=== PATIENT | male | born 1950 | race Caucasian/White ===

== ENCOUNTER 2017-09-05 02:03 | Inpatient (IN) | payer OTHER ==
[~2017-09-05] VITALS: Ht 170.2 cm; Wt 68.1 kg
[2017-09-05] VITALS (10 sets, daily range): BP systolic 107–140; BP diastolic 48–84
--- NOTE | ~2017-09-05 | EKG ---
[address] [address] ELECTROCARDIOGRAM REPORT Name: CORINA VALADEZ Room #: 359-P ADM IN M.R.#: [id number] Admission: 09/05/17 Attend Phys: Mark Luna MD Discharge: Date of : 50 Report #: [id number] THIS REPORT FOR: //name// [facility] ED Test Date: 2017-09-05 Test Time: 02:19:00 Pat Name: CORINA VLAADEZ Department: Room: Gender: M [employer] Aide Teacher: [place] : 1950 Requested By: Juwan Walker Order Number: [id number] MD: Ney Aquino Measurements Intervals [place] Rate: 85 P: 25 ND: 191 QRS: -77 QRSD: 137 T: 58 QT: 390 QTc: 464 Interpretive Statements Sinus rhythm Leftward axis No previous ECG available for comparison Electronically Signed On 09-05-2017 7:58:47 CDT by Ney Aquino [email or web address] <ELECTRONICALLY SIGNED> By: Ney Aquino MD, [facility] 09/05/17 0758 0219 0219 Ney Aquino MD, FACC /EPI
--- NOTE | ~2017-09-05 | HC ---
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 He was admitted to [facility] with increased shortness of breath, chronic kidney disease stage 4, noted to have pneumonia. He was diagnosed with sepsis, suspected aspiration, and urinary tract infection thought due to indwelling Zaman catheter. He is also noted to have heme-positive anemia. We are seeing him in rehabilitation medicine consultation. PAST MEDICAL HISTORY: Well delineated above. He is noted to have the right-sided hemiplegia, aphasia, history of hematuria, hyperkalemia. ALLERGIES: No known drug allergies. MEDICATIONS: Please see the full medication listing. This is noted to include his vitamins, herbals, and supplements. HABITS: No known history of whether he abused tobacco or alcohol or recreational drugs. SOCIAL HISTORY: Had been living in the community, apparently working as a line welder, but after the big stroke he has been at [employer]. Noted to be . REVIEW OF SYSTEMS: Somewhat difficult with language barrier and his significant aphasia. PHYSICAL EXAMINATION: GENERAL: A 67-year-old male in no obvious distress. VITAL SIGNS: Last recorded temperature 98.1, pulse 91, respirations 24, blood pressure 183/95. NEUROLOGIC: He is alert, limited verbalizations, depressed right nasolabial fold, dense right upper extremity plegia and right lower extremity plegia without obvious volitional movement. Appears to have some increased tone. EXTREMITIES: Edema 1+ in the right upper extremity. He has functional range of motion and appears to have reasonable movement of the left upper and left lower extremity. Transfers have been max assist with bed mobility. He has done some very limited sitting at the edge of the bed. Rolling to the right has been mod [facility] [address] [place] [address] CONSULTATION Name: CORINA VALADEZ Room #: 359-P [facility] IN M.R.#: [id number] Admission: 09/05/17 Attend Phys: Felice Jenkins MD Discharge: Date of : 50 Report #: [id number] assist, rolling to the left max assist. ASSESSMENT: A 67-year-old male with the following problem list: 1. Sepsis, suspected aspiration. 2. Healthcare-associated pneumonia. 3. Premorbid cerebrovascular accident with dense right hemiplegia. 4. Aphasia. 5. Dysphagia. 6. Chronic kidney disease. 7. Hypertension. PLAN: He is at a very low level. We would agree with returning back for skilled level therapies at [facility]. Note that case management is involved with making plans in this regard. By: [id number] Federico Sweet MD /nt
--- NOTE | ~2017-09-05 | HC ---
[facility] [place] [address] CONSULTATION Name: CORINA VALADEZ Room #: 359-P [facility] IN M.R.#: [id number] Admission: 09/05/17 Attend Phys: Felice Jenkins MD Discharge: Date of : 50 Report #: [id number] THIS REPORT FOR: //name// CC: Mark Norman Akkulugari DATE OF SERVICE: 09/05/2017 ATTENDING PHYSICIAN: Mark Luna MD REASON FOR CONSULTATION: Pneumonia. HISTORY OF PRESENT ILLNESS: A 67-year-old man [facility]. The patient unable to provide any information whatsoever. Consequently, all information is gathered from the review of records. PAST MEDICAL HISTORY: 1. CVA 2018, right-sided hemiplegia. 2. Aphasia. 3. Chronic kidney disease, undetermined type. 4. Anemia of chronic disease. 5. Status post percutaneous gastrostomy. 6. Malnutrition. DRUG ALLERGIES: None listed. MEDICATIONS: The patient on treatment with Levaquin 750 mg IV every 48 hours, vancomycin 1 g IV every 24 hours, Zosyn 3.375 grams IV every 12 hours. The patient also on treatment with atorvastatin, enoxaparin, hydralazine per feeding tube, amlodipine, metoprolol, insulin glargine and insulin lispro, p.r.n. glucose, glucagon, guaifenesin, acetaminophen p.r.n., polyethylene glycol per feeding tube, p.r.n. ondansetron, intravenous fluids. SOCIAL HISTORY: Unable to obtain from him FAMILY HISTORY: Unable to obtain. REVIEW OF SYSTEMS: Unable to obtain. PHYSICAL EXAMINATION: GENERAL: Chronically ill-appearing man. VITAL SIGNS: Temperature maximum 99.5, pulse 89, respirations 19, BP 140/66, height 5 feet 7 inches, weight 150 pounds. O2 saturation 97% room air. HEENMT: Pupils reactive. Mouth: Missing teeth, periodontal disease. NECK: Supple. LUNGS: Few basilar crackles. [facility] [address] [place] [address] CONSULTATION Name: CORINA VALADEZ Room #: 359-P [facility] IN M.R.#: [id number] Admission: 09/05/17 Attend Phys: Felice Jenkins MD Discharge: Date of : 50 Report #: [id number] HEART: S1, S2. ABDOMEN: Left-sided percutaneous gastrostomy. Soft, no masses or megaly. GENITALIA: Revealed Zaman catheter in place. RECTAL: Deferred. EXTREMITIES: No clubbing, cyanosis. NEUROLOGIC: Unable to evaluate. LABORATORY DATA: Sodium 133, potassium 4.5, BUN 114, creatinine 3.3, glucose 145, magnesium 2.7, alkaline phosphatase 196. Albumin 1.9. NT-proBNP 5065. Serum iron level 11, TIBC 214, percent saturation 5. WBC 18,900, hemoglobin 7.6 g/dL, platelets 213,000. White blood cell count differential, 94% segmented neutrophils. Urinalysis, cloudy, specific gravity 1.015, pH 6.53, 3+ protein, trace glucose, positive nitrite. Microscopic exam revealed bacteriuria, hematuria and pyuria. MICROBIOLOGY DATA: Blood and urine cultures negative so far. RADIOLOGY EVALUATION: Chest x-ray revealed cardiomegaly and some right basilar pulmonary infiltrate. ASSESSMENT: 1. Question aspiration pneumonia. 2. Urinary tract infection. 3. History of cerebrovascular accident. 4. Leukocytosis secondary to above. 5. Chronic kidney disease. 6. Severe anemia. 7. Status post percutaneous gastrostomy. SUGGESTIONS: Recommend urine for legionella and Streptococcus pneumoniae antigen. CRP and ESR. Continue coverage as for healthcare-associated pneumonia. In view of swollen right upper extremities, ultrasound venous circulation, right upper extremity. Dr. Luna, thank you for requesting my suggestions. <ELECTRONICALLY SIGNED> By: Reji Rizvi MD 09/06/17 0959 [id number] [id number] Reji Rizvi MD /nt
--- NOTE | ~2017-09-05 | HC ---
[facility] [place] [address] CONSULTATION Name: CORINA VALADEZ Room #: 359-P ADM IN M.R.#: [id number] Admission: 09/05/17 Attend Phys: Felice Jenkins MD Discharge: Date of : 50 Report #: [id number] THIS REPORT FOR: //name// CC: Emerson Jenkins DATE OF SERVICE: 09/06/2017 NEPHROLOGY CONSULTATION REASON FOR CONSULTATION: Chronic kidney disease. HISTORY OF PRESENT ILLNESS: The patient with known longstanding diabetes, hypertension and chronic kidney disease listed as CKD 4 at his detention. He apparently had a cough and a fever, was sent to the Emergency Department and found to have a urinary infection and admitted. He also had positive stools and anemia. PAST MEDICAL HISTORY: As far as I can tell, the patient had a fairly recent stroke with right hemiparesis and aphasia, inability to swallow and a PEG tube placed. He has an indwelling Zaman catheter, history of CKD 4 along with his diabetes and history of hypertension, which apparently has also been somewhat difficult. He has had ventricular arrhythmias. He had gross hematuria and apparently has a mass in his bladder yet to be evaluated by Urology. He also had a recent hospitalization complicated by hyperkalemia, as well as out of control blood sugars, currently at [facility] and this was within the last couple of weeks. FAMILY HISTORY: Unavailable. SOCIAL HISTORY: Unavailable. REVIEW OF SYSTEMS: The patient cannot answer questions. He nods a little bit, seems relatively comfortable in bed. HOME MEDICATIONS: Simvastatin 20 mg daily, amlodipine 10 mg daily, hydralazine 50 mg t.i.d., metoprolol tartrate 25 mg b.i.d., doxycycline 100 mg b.i.d. and insulin. PHYSICAL EXAMINATION: GENERAL: Reasonably comfortable appearing gentleman seen in his hospital bed. Indwelling Zaman in place. SKIN: Unremarkable. SKELETAL: Well developed, well nourished, nonobese. HEENT: Extraocular movements appear to be full. Vision difficult to test. Hearing appears to be intact. Mucous membranes are dry. [facility] [address] [place] [address] CONSULTATION Name: CORINA VALADEZ Room #: 359-P [facility] IN M.R.#: [id number] Admission: 09/05/17 Attend Phys: Felice Jenkins MD Discharge: Date of : 50 Report #: [id number] NECK: Supple. CHEST: Shows somewhat diminished breath sounds at the bases in supine position. HEART: Regular. ABDOMEN: Soft. EXTREMITIES: Show no edema. NEUROLOGIC: Shows the aphasia and right hemiparesis. LABORATORY DATA: Creatinine is 3.3, up to 3.6. Urinalysis was floridly infected, also showing proteinuria. He did have leukocytosis with a white count of 18,900, platelets of 202. Hemoglobin was 7.6. He received 2 units of blood. Sodium 136, potassium 4, chloride 102, bicarbonate 22, BUN 107, creatinine 3.6. ASSESSMENT AND PLAN: 1. Chronic kidney disease stage 4 as listed. Baseline creatinine not really available. I do not have any labs. He may have an acute exacerbation. IV fluids and treatment of his urinary infection are indicated. 2. Urinary tract infection, awaiting cultures on antibiotics. ID is seeing. 3. Recent dominant hemisphere cerebrovascular accident with right hemiparesis and aphasia, now with a PEG tube as well. 4. Longstanding diabetes. 5. Hypertension. 6. Bladder mass. By: [id number] Francisco Patton MD /nt
[2017-09-05 02:28] LABS: ABSOLUTE NEUTROPHILS 17.8 thou/uL (1.4-8.2); BASOPHILS 0.4 % (0.0-2.0); HEMATOCRIT 22.4 % (42.0-52.0); HEMOGLOBIN 7.6 gm/dL (14.0-18.0); LYMPHOCYTES 1.8 % (24.0-44.0); MCH 29.6 pg (26.0-34.0); MCHC 33.8 g/dL (28.0-37.0); MCV 87.5 fL (80.0-100.0); MONOCYTES 3.7 % (1.0-8.0); PLATELET COUNT 213 thou/uL (150-400); POLYS 94.1 % (36.0-66.0); RBC 2.56 mil/uL (4.50-6.00); RDW 14.1 % (10.5-14.5); WBC 18.9 thou/uL (4.0-11.0)
[2017-09-05 02:31] LABS: URINE BILIRUBIN NEGATIVE (Negative); URINE BLOOD 2+ (Negative); URINE COLOR YELLOW; URINE GLUCOSE-RANDOM* TRACE (Negative); URINE KETONES NEGATIVE (Negative); URINE PROTEIN (DIPSTICK) 3+ (Negative); URINE SPECIFIC GRAVITY 1.015 (1.005-1.035); URINE UROBILINOGEN 0.2 E.U./dl (0.2-1.0)
[2017-09-05 02:32] LABS: URINE CLARITY SL CLOUDY; URINE LEUKOCYTES-REFLEX 2+ (Negative); URINE NITRITE-REFLEX POSITIVE (Negative)
[2017-09-05 02:32] LABS: ANION GAP 7 mmol/L (7-16); BUN 114 mg/dL (7-18); CALCIUM 8.7 mg/dL (8.5-10.1); CHLORIDE 99 mmol/L (98-107); CO2 27 mmol/L (21-32); CREATININE 3.3 mg/dL (0.7-1.3); GLUCOSE 145 mg/dL (74-106); POTASSIUM 4.5 mmol/L (3.5-5.1); SODIUM 133 mmol/L (136-145)
[2017-09-05 02:40] LABS: SQUAMOUS 4-10 Moderate /LPF (0-3); URINE WBC-REFLEX >25 Many /HPF (0-5)
[2017-09-05 02:41] LABS: BACTERIA-REFLEX >30 Many /HPF (None Seen); CASTS None Seen /LPF (None Seen); CRYSTALS None Seen /LPF (None Seen); MUCUS 0-3 Light strn/LPF (None Seen)
[2017-09-05 02:41] LABS: ALBUMIN 1.9 g/dL (3.4-5.0); MAGNESIUM 2.7 mg/dL (1.8-2.4); SGOT 35 U/L (15-37); SGPT 63 U/L (30-65); TOTAL BILIRUBIN 0.4 mg/dL (<0.1-1.0); TOTAL PROTEIN 6.1 g/dL (6.4-8.2); TROPONIN-I < 0.04 ng/mL (<0.06)
[2017-09-05] MEDS ORDERED: SIMVASTATIN20 MG PER TUBE (02:43)
[2017-09-05] MEDS ORDERED: AMLODIPINE BESY10 MG PER TUBE (02:43)
[2017-09-05] MEDS ORDERED: HYDRALAZINE 2525 MG PER TUBE (02:44)
[2017-09-05] MEDS ORDERED: LOPRESSOR25 PER TUBE (02:44)
[2017-09-05] MEDS ORDERED: FLORASTORKIDS250 MG PER TUBE (02:44)
[2017-09-05] MEDS ORDERED: LANTUS100 UNIT/M SUBQ (02:45)
[2017-09-05] MEDS ORDERED: DOXYCYCLINE 10100 MG PO (02:45)
[2017-09-05] MEDS ORDERED: NOVOLOG100 UNIT/1 SUBQ (02:46)
[2017-09-05 09:41] LABS: ABSOLUTE RETIC COUNT 0.0811 10^6/uL; OBSERVED RETIC COUNT 3.12 % (0.6-2.6)
[2017-09-05 09:43] LABS: % SATURATION 5 % (20-39); IRON 11 ug/dL (65-175); TIBC 214 ug/dL (250-450)
[2017-09-05 10:57] LABS: FOLIC ACID 31.3 ng/mL (8.6-58.9)
[2017-09-06 03:30] VITALS: BP 138/70
[2017-09-06 04:39] LABS: HEMATOCRIT 25.4 % (42.0-52.0); MCH 29.6 pg (26.0-34.0); MCHC 33.9 g/dL (28.0-37.0); MCV 87.2 fL (80.0-100.0); RBC 2.91 mil/uL (4.50-6.00); RDW 14.8 % (10.5-14.5)
[2017-09-06 04:40] LABS: HEMOGLOBIN 8.6 gm/dL (14.0-18.0)
[2017-09-06 04:53] LABS: CALCIUM 8.3 mg/dL (8.5-10.1); CREATININE 3.6 mg/dL (0.7-1.3)
[2017-09-06 07:59] VITALS: BP 136/60
[2017-09-06 11:49] VITALS: BP 136/62
[2017-09-06 19:39] VITALS: BP 129/54
[2017-09-07 03:13] VITALS: BP 135/70
[2017-09-07 06:01] LABS: ABSOLUTE NEUTROPHILS 8.7 thou/uL (1.4-8.2); BASOPHILS 0.6 % (0.0-2.0); EOSINOPHILS 1.5 % (0.0-3.0); HEMATOCRIT 25.1 % (42.0-52.0); HEMOGLOBIN 8.7 gm/dL (14.0-18.0); LYMPHOCYTES 6.4 % (24.0-44.0); MCH 30.4 pg (26.0-34.0); MCHC 34.7 g/dL (28.0-37.0); MCV 87.5 fL (80.0-100.0); MONOCYTES 8.4 % (1.0-8.0); PLATELET COUNT 213 thou/uL (150-400); POLYS 83.1 % (36.0-66.0); RBC 2.87 mil/uL (4.50-6.00); RDW 14.7 % (10.5-14.5); WBC 10.4 thou/uL (4.0-11.0)
[2017-09-07 06:14] LABS: CALCIUM 8.1 mg/dL (8.5-10.1); CREATININE 3.5 mg/dL (0.7-1.3); MAGNESIUM 2.7 mg/dL (1.8-2.4); POTASSIUM 4.4 mmol/L (3.5-5.1)
[2017-09-07 07:06] VITALS: BP 156/78
[2017-09-07 11:32] VITALS: BP 125/71
[2017-09-07 15:12] VITALS: BP 141/74
[2017-09-07 15:21] VITALS: BP 121/77
[2017-09-07 19:40] VITALS: BP 121/69
[2017-09-08 03:55] VITALS: BP 131/72
[2017-09-08 06:13] LABS: HEMATOCRIT 26.5 % (42.0-52.0); MCHC 33.9 g/dL (28.0-37.0); MCV 88.4 fL (80.0-100.0); RBC 2.99 mil/uL (4.50-6.00); RDW 14.8 % (10.5-14.5); WBC 6.7 thou/uL (4.0-11.0)
[2017-09-08 06:22] LABS: CALCIUM 7.9 mg/dL (8.5-10.1); CREATININE 3.4 mg/dL (0.7-1.3)
[2017-09-08 07:15] VITALS: BP 146/77
[2017-09-08 11:07] VITALS: BP 129/70
[2017-09-08 15:21] VITALS: BP 131/68
[2017-09-08 20:25] VITALS: BP 120/65
[2017-09-09 04:26] LABS: ALBUMIN 1.7 g/dL (3.4-5.0); CALCIUM 8.2 mg/dL (8.5-10.1); CREATININE 3.4 mg/dL (0.7-1.3); PHOSPHORUS 4.5 mg/dL (2.5-4.9); POTASSIUM 5.6 mmol/L (3.5-5.1)
[2017-09-09 05:20] VITALS: BP 130/69
[2017-09-09 07:14] VITALS: BP 183/95
[2017-09-09 11:46] VITALS: BP 156/85
[2017-09-09 16:36] VITALS: BP 155/80
[2017-09-09 19:15] VITALS: BP 157/77
[2017-09-10 03:20] VITALS: BP 179/93
[2017-09-10 06:37] LABS: HEMATOCRIT 27.2 % (42.0-52.0); MCH 29.6 pg (26.0-34.0); MCHC 33.2 g/dL (28.0-37.0); MCV 89.1 fL (80.0-100.0); RBC 3.06 mil/uL (4.50-6.00); WBC 7.7 thou/uL (4.0-11.0)
[2017-09-10 07:07] LABS: CALCIUM 8.6 mg/dL (8.5-10.1); CREATININE 3.4 mg/dL (0.7-1.3); POTASSIUM 5.8 mmol/L (3.5-5.1)
[2017-09-10 07:44] VITALS: BP 174/90
[2017-09-10 11:40] VITALS: BP 143/74
[2017-09-10] MEDS ORDERED: PROTONIX40 M1 PO (11:52)
[2017-09-10] MEDS ORDERED: DUONEB 2.5-0.5 M3 ML INH (11:52)
[2017-09-10] MEDS ORDERED: MIRALAX17 GM PO (11:52)
[2017-09-10] MEDS ORDERED: CIPRO250 M1 PO (13:21)
== END 2017-09-10 16:33 | DRG 871 ==
LOC: ER 02:03 → EROBS 02:53 → 3W 02:53
PROVIDERS: Emergency Medicine; Hospitalist; Internal Medicine; Internal Medicine Nephrology; Nurse Practitioner Family
PROC: 30233N1 Transfusion of Nonautologous Red Blood Cells into Peripheral Vein, Percutaneous Approach (ICD-10-PCS; principal; 2017-09-05)
DX: A41.9 Sepsis, unspecified organism (principal); J69.0 Pneumonitis due to inhalation of food and vomit; N18.4 Chronic kidney disease, stage 4 (severe); I69.351 Hemiplegia and hemiparesis following cerebral infarction affecting right dominant side; N10 Acute pyelonephritis; I13.0 Hypertensive heart and chronic kidney disease with heart failure and stage 1 through stage 4 chronic kidney disease, or unspecified chronic kidney disease; N32.9 Bladder disorder, unspecified; D50.9 Iron deficiency anemia, unspecified; E87.5 Hyperkalemia; I50.9 Heart failure, unspecified; D63.8 Anemia in other chronic diseases classified elsewhere; E11.22 Type 2 diabetes mellitus with diabetic chronic kidney disease; Y95 Nosocomial condition; E66.9 Obesity, unspecified; I69.320 Aphasia following cerebral infarction; Z93.1 Gastrostomy status; Z90.49 Acquired absence of other specified parts of digestive tract; Z68.23 Body mass index [BMI] 23.0-23.9, adult; Z79.4 Long term (current) use of insulin; Z79.899 Other long term (current) drug therapy
CPT/HCPCS: 10879